=== PATIENT | female | born 1950 | race Caucasian/White ===

== ENCOUNTER → 2018-03-30 14:39 | Outpatient (CLI) | payer MEDICARE, SELFPAY ==
--- NOTE | 2018-03-30 14:49 | DI.RAD.S_ITS ---
PROCEDURE: XR CERVICAL SPINE 4V OR 5V INDICATIONS: Cervical spondylosis TECHNIQUE: 5 views of the cervical spine acquired. COMPARISON: None. FINDINGS: Bones: There is straightening and mild reversal of normal cervical lordosis. No acute compression fracture or traumatic spondylolisthesis to T3-4 level. Degenerative endplate changes are noted at C4-5, C5-6 and C6-7 levels. There is suggestion of bilateral neural foramina narrowing at C5-6 level. Soft tissues: No prevertebral soft tissue swelling. IMPRESSION: Degenerative disc disease in mid to lower cervical spine with suggestion of bilateral neural foramina narrowing at C5-6 level. No acute compression fracture or traumatic spondylolisthesis. Dictated by: Raul Garcia M.D. on 03/30/2018 at 15:53 Approved by: Ralu Garcia M.D. on 03/30/2018 at 15:55
--- NOTE | 2018-03-30 14:49 | DI.RAD.S_ITS ---
PROCEDURE: XR LUMBAR SPINE MIN 4V INDICATIONS: Lumbosacral spondylosis TECHNIQUE: 3 views of the lumbar spine acquired. COMPARISON: None. FINDINGS: Bones: 5 nonrib-bearing vertebrae are present. There is normal bony alignment. No vertebral body compression fractures. No suspicious bony lesions. Degenerative endplate changes are noted throughout lumbar spine. Soft tissues: Overlying bowel gas pattern is normal. No suspicious soft tissue calcifications. IMPRESSION: Mild degenerative disc disease through all visualized lower thoracic spine and lumbar spine. No acute compression fracture or traumatic spondylolisthesis. Dictated by: Raul Garcia M.D. on 03/30/2018 at 15:55 Approved by: Raul Garcia M.D. on 03/30/2018 at 15:56
== END ==
PROVIDERS: PCP Specialist; Visit Provider Physical Medicine & Rehabilitation
DX: M47.812 Spondylosis without myelopathy or radiculopathy, cervical region (principal); M50.321 Other cervical disc degeneration at C4-C5 level; M47.27 Other spondylosis with radiculopathy, lumbosacral region; M47.26 Other spondylosis with radiculopathy, lumbar region; M51.14 Intervertebral disc disorders with radiculopathy, thoracic region; R42 Dizziness and giddiness
CPT/HCPCS: 72050; 72110; 99214

== ENCOUNTER 2018-06-28 13:06 | Outpatient (CLI) | payer MEDICARE, SELFPAY ==
[2018-06-28] VITALS (7 sets, daily range): BP systolic 132–188; BP diastolic 76–99; PULSE 62–69; RESP 15–21; TEMP 36.1; O2SAT 98–100
--- NOTE | 2018-06-28 13:08 | DI.RAD.S_ITS ---
PROCEDURE: PAIN L/S TRANSFORAMINAL INJECT INDICATIONS: SPONDYLOSIS FINDINGS: Fluoroscopic spot filming was performed to verify placement of spinal needles at the L4-L5 level(s), as labeled on the films. Appropriate location(s) of the needle tip(s) was confirmed by injection of iodinated contrast. Dictated by: Anders Eden M.D. on 06/28/2018 at 20:47 Approved by: Anders Eden M.D. on 06/28/2018 at 20:48
[2018-06-28] MEDS: MIDAZOLAM 5 MG/5 ML VIAL IV (13:50)
[2018-06-28] MEDS: DEXAMETHASONE 10 MG/ML VIAL 20 MG INJ (13:57)
[2018-06-28] MEDS: BUPIVACAINE 0.25% (PF) VIAL 2 ML INJ (13:57)
[2018-06-28] MEDS: IOPAMIDOL 15 ML VIAL 3 ML INJ (13:57)
[2018-06-28] MEDS: methylPREDNISolone acetate 80 MG/ML VIAL INJ (13:59)
--- NOTE | 2018-06-28 14:13 | P.PCN_ITS ---
Procedures Date/Time Date of procedure: 06/28/18 Time of procedure: 14:12 General Procedure description: PREOP DIAGNOSIS 1. FORMAINAL STENOSIS WITH LE SYMPTOMS POST OP DIAGNOSIS 1. FORMAINAL STENOSIS WITH LE SYMPTOMS PROCEDURES 1. FLUOROSCOPICALLY GUIDED CONTRAST CONTROLLED TRANSFORAMINAL EPIDURAL STEROID INJECTION - LEFT L4/5 PHYSICIAN: Jeremias Aleman DO INDICATIONS: Mirela is referred by Dr. Guzman for treatment of Foraminal Stenosis with Left LE Symptoms FINDINGS Foraminal Nerve Root Compression secondary to disc disease and facet hypertrophy DESCRIPTION OF PROCEDURE: Following denial of allergy and review of potential side effects and complications, including, but not necessarily limited to, infection, allergic reaction, local tissue breakdown, stroke, temporary or permanent nerve injury, paralysis, and possible , the patient indicated that the patient understood and agreed to proceed. An informed consent document was signed by the patient, witnessed by a nurse, and placed in the patient's chart. Additionally, other treatment options including medications, modalities, and physical therapy were reviewed with the patient. After review of previous anaesthesic history and IV conscious sedation the patient was deemed safe to proceed with todays procedure with IV conscious sedation as ASA class II designation. Safety time-out was performed to confirm patient ID, procedure to be performed and site of procedure. IV sedation was accomplished with a combination of 4mg of Versed administered by the RN after DO order, titrated to patient comfort during the course of the procedure while the patient remained responsive to all verbal commands In the prone position following sterile prep and drape of the lumbar region, the left L4/5 posterior neuroforamen was identified fluoroscopically. The skin was anesthetized via a 25-gauge 1.5-inch needle with 1% lidocaine solution. At this point, a 25-gauge 3.5-inch spinal needle was atraumatically introduced and advanced under fluoroscopic guidance through the posterior left L4/5 neuroforamen to approximately the anterior aspect of the canal. Depth was confirmed on lateral view. Following negative aspiration, injection of approximately 1.5 cc of Isovue 200 under live fluoroscopy in the AP view confirmed excellent flow along the nerve root, into the epidural space without vascular or intrathecal uptake observed Radiological data, including multiple fluoroscopic views of the lumbosacral spine, reveal a spinal needle at the left L4/5 posterior neuroforamen. Subsequent views show flow of contrast material flowing superiorly and inferiorly along the nerve root confirming epidural flow. Subsequently, a test dose of 1.5 cc of 1% lidocaine solution was administered and patient was observed for two minutes for signs or symptoms of complications , including abdominal pain, shortness of breath, bilateral upper or lower extremity weakness, nausea and vomiting, prior to steroid injection. At this point, a total of 3 cc or 20 mg of dexamethasone and 80mg Depo Medrol was injected without incident. The procedure tolerated the procedure well without signs or symptoms of complications prior to transfer to the recovery area continued monitoring without incident. The patient was then transferred to the recovery area where they were observed for an appropriate time after the injection. The patient reported a VAS score of 7 prior to the procedure and a post- procedure VAS of 0. Total Fluoroscopy Time: 20.9 seconds Total Conscious Sedation Time: 24min POST OP INSTRUCTIONS The patient was provided a Pain Log to continue to record their response to the target-specific procedure prior to follow-up visit with their referring physician. Additionally, specific post-injection care instructions and a contact number to our office were provided if concerns arise regarding possible complications associated with the procedure are suspected. Jeremias Aleman DO Complications: none
--- NOTE | 2018-06-28 14:14 | PC.NURSE ---
pt tolerated procedure well. able to get off the table with minimal assist. Transferred pt to pre procedure room via Wheelchair for continued monitoring with Kyra GOMEZ.
--- NOTE | 2018-06-28 14:18 | PC.NURSE ---
ACCEPTED CARE OF PT IN STABLE CONDITION IN POST PROC AREA.
--- NOTE | 2018-06-29 17:09 | PC.NURSE ---
Follow up call one day post injection. Pt reports she didn't sleep good last night but she knew that was a possibility related to the steroids. Otherwise she reports doing quite well and happy with her results so far.
== END 2018-06-28 14:51 | disposition home or self-care (01) ==
LOC: RAD 13:07
PROVIDERS: PCP Specialist; Visit Provider Physical Medicine & Rehabilitation
DX: M48.061 Spinal stenosis, lumbar region without neurogenic claudication (principal); M51.16 Intervertebral disc disorders with radiculopathy, lumbar region; M47.27 Other spondylosis with radiculopathy, lumbosacral region
CPT/HCPCS: 64483; 99152; J1040; J1100; J2250

== ENCOUNTER 2018-09-13 13:08 | Outpatient (CLI) | payer MEDICARE, SELFPAY ==
[2018-09-13] VITALS (9 sets, daily range): BP systolic 129–183; BP diastolic 79–102; PULSE 61–68; RESP 16–18; TEMP 36.3; O2SAT 97–100
--- NOTE | 2018-09-13 13:10 | DI.RAD.S_ITS ---
PROCEDURE: PAIN L/SI FACET INJ/BLK 1STL INDICATIONS: SPONDYLOSIS FINDINGS: Fluoroscopic spot filming was performed to verify placement of spinal needles at the L4-L5 and L5-S1 level(s), as labeled on the films. Appropriate location(s) of the needle tip(s) was confirmed by injection of iodinated contrast. IMPRESSION: Fluoroscopy for pain management Dictated by: Jerrell Patle M.D. on 09/14/2018 at 7:46 Approved by: Jerrell Patel M.D. on 09/14/2018 at 7:46
[2018-09-13] MEDS: MIDAZOLAM 5 MG/5 ML VIAL IV (13:55)
[2018-09-13] MEDS: BUPIVACAINE 0.5% (PF) VIAL 2 ML INJ (13:59)
[2018-09-13] MEDS: IOPAMIDOL 15 ML VIAL 3 ML INJ (13:59)
[2018-09-13] MEDS: BETAMETHASONE 30 MG/5 ML MDV 12 MG INJ (13:59)
--- NOTE | 2018-09-13 14:01 | PC.NURSE ---
ASSISTING PT OFF TABLE AND TRANSPORTING TO POST PROC AREA IN STABLE CONDITION
--- NOTE | 2018-09-13 14:06 | P.PCN_ITS ---
Procedures Date/Time Date of procedure: 09/13/18 Time of procedure: 14:05 General Procedure description: PREOP DIAGNOSIS 1. FACET ARTHROPATHY, 2. AXIAL LBP, 3. MULTILEVEL DDD, POST OP DIAGNOSIS 1. FACET ARTHROPATHY, 2. AXIAL LBP, 3. MULTILEVEL DDD, PROCEDURES 1. FLUORSCOPICALLY GUIDED CONTRAST CONTROLLED FACET JOINT INJECTIONS LEFT L4/5, L5/S1 SURGEON: Jeremias Aleman, DO INDICATIONS Mirela is referred by Dr. Guzman for treatment of Left Axial LBP FINDINGS Multilevel Facet Arthropathy with Clinically significant axial LBP DESCRIPTION OF PROCEDURE Fluoroscopically guided, contrast-controlled left L4/5, L5/S1 facet joint injections. Following denial of allergy and review of potential side effects and complications, including, but not necessarily limited to, infection, allergic reaction, local tissue breakdown, stroke, temporary or permanent nerve injury, paralysis, and possible , the patient indicated that the patient understood and agreed to proceed. An informed consent document was signed by the patient, witnessed by a nurse, and placed in the patient's chart. Additionally, other treatment options including medications, modalities, and physical therapy were reviewed with the patient. After review of previous anaesthesic history and IV conscious sedation the patient was deemed safe to proceed with todays procedure with IV conscious sedation as ASA class II designation. Safety time-out was performed to confirm patient ID, procedure to be performed and site of procedure. IV sedation was accomplished with a combination of 4mg of Versed was administered by the RN after DO order, titrated to patient comfort during the course of the procedure while the patient remained responsive to all verbal commands. In the prone position, following sterile prep and drape of the lumbar region, the posterior aspect of the left L4/5, L5/S1 facet joints were identified fluoroscopically. The skin was anesthetized via a 25-gauge 1.5-inch needle with 1% lidocaine solution into the corresponding facet joints. At this point, a 22- gauge 3.5-inch spinal needle was atraumatically introduced and advanced under fluoroscopic guidance into the corresponding facet joints. Following negative aspiration, injections of approximately 0.2-cc of Isovue 200 confirmed interarticular placement without vascular uptake. Radiological data, including multiple fluoroscopic views of the lumbosacral spine, reveal a spinal needle at the left L4/5, L5/S1 facet joints. Subsequent views show flow of contrast material both superiorly and inferiorly within the joint space without vascular or intrathecal uptake. At this point, a total of 0.5 cc including a mixture of 0.25cc Marcaine and 0.25cc betamethasone was injected without complication into each of the corresponding facet joints. The procedure tolerated the procedure well without signs or symptoms of complications prior to transfer to the recovery area continued monitoring without incident. The patient was then transferred to the recovery area where they were observed for an appropriate period of time after the injection. The patient reported a VAS score of 7 prior to the procedure and a post-procedure VAS of 0. Total Fluoroscopy Time: 12.7 seconds Total Conscious Sedation Time: 24min POST OP INSTRUCTIONS The patient was provided a Pain Log to continue to record their response to the target-specific procedure prior to follow-up visit with their referring physician. Additionally, specific post-injection care instructions and a contact number to our office were provided if concerns arise regarding possible complications associated with the procedure are suspected. Jeremias Aleman, Complications: none
--- NOTE | 2018-09-13 14:38 | PC.NURSE ---
pt returned from procedure via wheelchair, awake and alert. Able to move from w/c to chair with stand by assist. Resumed monitoring from Kyra GOMEZ.
--- NOTE | 2018-09-14 12:27 | PC.NURSE ---
FOLLOW UP CALL MADE, PT C/O INCREASED PAIN TODAY. EXPLAINED THAT INCREASED PAIN IS COMMON DAY AFTER PROC AND INSTRUCTED PT TO TAKE ANY PRESCRIBED OR OTC MEDS DIRECTED. PT DENIES OTHER QUESTIONS/CONCERNS AT THIS TIME. REMINDED PT OF CLINIC NUMBER ON PAIN LOG IF SHE NEEDS US AT A LATER TIME/DATE.
== END 2018-09-13 14:35 | disposition short-term general hospital (02) ==
LOC: RAD 13:09
PROVIDERS: PCP Specialist; Visit Provider Physical Medicine & Rehabilitation
DX: M47.817 Spondylosis without myelopathy or radiculopathy, lumbosacral region (principal); M47.816 Spondylosis without myelopathy or radiculopathy, lumbar region; M54.5 Low back pain; M51.36 Other intervertebral disc degeneration, lumbar region
CPT/HCPCS: 64493; 64494; 99152; J0702; J2250

== ENCOUNTER 2018-12-27 10:26 | Outpatient (CLI) | payer MEDICARE, SELFPAY ==
[2018-12-27] VITALS (9 sets, daily range): BP systolic 119–172; BP diastolic 76–87; PULSE 61–73; RESP 16–18; TEMP 36.2; O2SAT 96–100
--- NOTE | 2018-12-27 10:27 | DI.RAD.S_ITS ---
PROCEDURE: PAIN L/SI FACET INJ/BLK 1STL INDICATIONS: SPONDYLOSIS FINDINGS: Fluoroscopic spot filming was performed to verify placement of spinal needles at the level(s) as labeled on the films. Appropriate location(s) of the needle tip(s) was confirmed by injection of iodinated contrast. IMPRESSION: Fluoroscopy for pain management. Dictated by: Jerrell Patel M.D. on 12/27/2018 at 17:04 Approved by: Jerrell Patel M.D. on 12/27/2018 at 17:05
[2018-12-27] MEDS: MIDAZOLAM 5 MG/5 ML VIAL IV (11:27)
[2018-12-27] MEDS: fentaNYL 100 MCG/2 ML INJ 50 MCG IV (11:27)
[2018-12-27] MEDS: IOPAMIDOL 15 ML VIAL 3 ML INJ (11:35)
[2018-12-27] MEDS: BUPIVACAINE 0.5% (PF) VIAL 2 ML INJ (11:35)
[2018-12-27] MEDS: BETAMETHASONE 30 MG/5 ML MDV 12 MG INJ (11:36)
--- NOTE | 2018-12-27 11:37 | PC.NURSE ---
ASSISTING PT OFF TABLE AND TRANSPORTING TO POST PROC AREA IN STABLE CONDITION.
--- NOTE | 2018-12-27 11:42 | P.PCN_ITS ---
Procedures Date/Time Date of procedure: 12/27/18 Time of procedure: 11:41 General Procedure description: POST OP DIAGNOSIS 1. FACET ARTHROPATHY PROCEDURES 1. Left L4, L5 and S1 MB BLOCKS PHYSICIAN: DO RODRIGO Loving Mirela is referred by for treatment of Left Axial LBP. DESCRIPTION OF PROCEDURE Fluoroscopically guided, contrast-controlled left L4, L5 and S1 medial branch blocks with 0.5cc of 0.5% Marcaine. Following review of allergy and review of potential side effects and complications, including, but not necessarily limited to, infection, allergic reaction, local tissue breakdown, nerve injury, paralysis, stroke and possible , the patient indicated that the patient understood and agreed to proceed. An informed consent document was signed by the patient, witnessed by a nurse, and placed in the patient's chart. After review of previous anaesthesic history and IV conscious sedation the patient was deemed safe to proceed with todays procedure with IV conscious sedation as ASA class II designation. Safety time-out was performed to confirm patient ID, procedure to be performed and site of procedure. IV sedation was accomplished with a combination of 3mg of Versed and 50mcg of Fentanyl was administered by the RN after DO order, titrated to patient comfort during the course of the procedure while the patient remained responsive to all verbal commands. In the prone position, following sterile prep and drape of the lumbar region, the left L4, L5 and S1 anatomical location of the medial branch of the dorsal ramus was identified fluoroscopically. Subsequently an anesthetic skin wheal using 1% lidocaine solution was initiated at each of the anatomical spots. Subsequently then a 22-gauge 3.5-inch spinal needle was atraumatically introduced and advanced under fluoroscopic guidance at each of the corresponding sites at the left L4, L5 and S1 MB. After negative aspiration, 0.2 cc of Isovue 200 was injected, confirming placement without vascular or intrathecal uptake. Subsequently then 0.5 cc of 0.5% Marcaine solution was injected at each of the corresponding sites at the left L4, L5 and S1 medial branch locations. The patient tolerated the procedure well without signs or symptoms of complications. The patient tolerated the procedure well without signs or symptoms of complications prior to transfer to the recovery area continued monitoring without incident. Post-procedure, the patient was monitored initiating provocative activities to measure the amount of relief from block of the facetogenic pain. The patient reported a VAS of 7 prior to the procedure and a post-procedure VAS of 1. It has been a pleasure to assist in the diagnostic and therapeutic care of your patient. Total Fluoroscopy Time: 24.8 seconds Total Conscious Sedation Time: 24min POST OP INSTRUCTIONS The patient was provided with a Pain Log to complete over the next several hours and subsequent days prior to the patient's follow up with the ordering physician. If the patient has physicist light and optics relief to the solution applied, then they may be a candidate for medial branch rhizotomy. The patient is aware, was provided, once again, with a Pain Log and will follow up with the referring physician for review and clinical correlation Jeremias Aleman DO Complications: none
--- NOTE | 2018-12-27 11:43 | PC.NURSE ---
Pt returned via wheelchair awake and alert, able to get from w/c to chair with standby assist. Resumed monitoring from Kyra GOMEZ.
== END 2018-12-27 12:15 ==
LOC: RAD 10:27
PROVIDERS: PCP Emergency Medicine Emergency Medical Services; Visit Provider Physical Medicine & Rehabilitation
DX: M47.817 Spondylosis without myelopathy or radiculopathy, lumbosacral region (principal); M47.816 Spondylosis without myelopathy or radiculopathy, lumbar region
CPT/HCPCS: 64493; 64494; 99152; J0702; J2250; J3010

== ENCOUNTER 2019-03-28 11:17 | Outpatient (CLI) | payer MEDICARE, SELFPAY ==
[2019-03-28] VITALS (9 sets, daily range): BP systolic 121–156; BP diastolic 54–79; PULSE 59–66; RESP 16–18; TEMP 35.9; O2SAT 99–100
--- NOTE | 2019-03-28 11:19 | DI.RAD.S_ITS ---
PROCEDURE: PAIN L/S MED/LAT N RFA INDICATIONS: SPONDYLOSIS FINDINGS: Fluoroscopic spot filming was performed to verify placement of spinal needles at the L4, L5, S1 level(s), as labeled on the films. Appropriate location(s) of the needle tip(s) was confirmed by injection of iodinated contrast. Dictated by: Anders Eden M.D. on 03/28/2019 at 15:06 Approved by: Anders Eden M.D. on 03/28/2019 at 15:06
--- NOTE | 2019-03-28 11:51 | PC.NURSE ---
1135: Patient arrived to DI for scheduled procedure, ambulated with steady gait. Awake, alert, and pleasant. Pain 3/10 dull ache, to lower back. VSS and afebrile.
[2019-03-28] MEDS: MIDAZOLAM 5 MG/5 ML VIAL IV (12:19)
[2019-03-28] MEDS: fentaNYL 100 MCG/2 ML INJ 50 MCG IV (12:19)
[2019-03-28] MEDS: BETAMETHASONE 30 MG/5 ML MDV 12 MG INJ (12:31)
[2019-03-28] MEDS: LIDOCAINE 1% 20 ML 10 ML INJ (12:31)
[2019-03-28] MEDS: IOPAMIDOL 15 ML VIAL 3 ML INJ (12:31)
[2019-03-28] MEDS: BUPIVACAINE 0.5% (PF) VIAL 2 ML INJ (12:32)
--- NOTE | 2019-03-28 12:39 | PC.NURSE ---
ASSISTING PT OFF TABLE AND TRANSPORTING TO POST PROC AREA IN STABLE CONDITION.
--- NOTE | 2019-03-28 12:54 | P.PCN_ITS ---
Procedures Date/Time Date of procedure: 03/28/19 Time of procedure: 12:54 General Procedure description: PREOP DIAGNOSIS 1. RECALCITRANT FACET ARTHROPATHY, POST OP DIAGNOSIS 1. RECALCITRANT FACET ARTHROPATHY, PROCEDURES 1. LEFTT L4 AND L5 MEDIAL BRANCH RADIOFREQUENCY NEUROTOMY AND LEFT S1 DORSAL RAMUS RADIOFREQUENCY NEUROTOMY, PHYSICIAN: DO RODRIGO Loving Mirela is referred by Dr. Guzman for treatment of facet arthropathy. DESCRIPTION OF PROCEDURE Left L4 and L5 medial branch radiofrequency neurotomy and left S1 dorsal ramus branch radiofrequency neurotomy under fluoroscopy with conscious sedation. The patient is well known to this clinic having undergone previous facet injections with good but temporary relief. The patient has experienced appropriate, concordant relief with previous facet and median branch blocks but the patient's pain has been recalcitrant to further conservative measures. Therefore, based upon the patient's relief and persistent symptoms, the patient is considered an appropriate candidate for facet rhizotomy. All of the patient's questions regarding the risks versus benefits of the procedure, including, but not limited to, bleeding, infection, temporary as well as lasting nerve injury, paralysis, stroke, and , as well treatment alternatives were answered to satisfaction. After obtaining informed consent, denial of pertinent drug allergies, as well as being made aware of the potential risks of bleeding, infection, spinal cord trauma, paralysis, temporary and permanent nerve damage, seizure, stroke, and possible , the patient was brought to the fluoroscopy suite and positioned prone on the fluoroscopy table. The lumbar region was prepped with Betadine and covered with a fenestrated drape in the usual sterile fashion. Appropriate monitors applied including pulse oximeter, pulse, and blood pressure for regular monitoring throughout the procedure. IV sedation was accomplished with a combination of 3mg of Versed and 50mcg of Fentanyl titrated to patient comfort during the course of the procedure while the patient remained responsive to all verbal commands. After local infiltration using 1% lidocaine, under fluoroscopic guidance, a 10- cm RF insulated needle with a 10-mm active tip was positioned parallel to the junction of the left sacral ala and the superior articulating process where the S1 dorsal ramus resides. Needle placement was confirmed with sensory stimulation at 50 Hz, with motor stimulation of .5v on the left which produced local stimulation without radicular component. The stimulation was then increased to 1.5v with, once again, only local multifidus stimulation without radicular component. This was then followed by two discreet lesions performed at 80 degrees Celsius for 90 seconds each. The needle was then removed and the identical procedure was performed along the length of the left L5 medial branch with motor stimulation at .7v on the leftt. The identical procedure was once again performed along the length of the left L4 medial branch with motor stimulation of .5v on the left. The patient tolerated the procedure well without signs or symptoms of complications prior to transfer to the recovery area continued monitoring without incident. The patient was then transferred to the recovery area where they were observed for an appropriate period of time after the injection. The patient was then transferred to the recovery area where they were observed for an appropriate period of time after the injection. The patient reported a VAS score of 9 prior to the procedure and a post- procedure VAS of 0. Total Fluoroscopy Time: 22.7 seconds Total Conscious Sedation Time: 34min POST OP INSTRUCTIONS The patient was provided a Pain Log to continue to record the patient's response to the target-specific procedure prior to the patient's follow-up visit with the referring physician. Additionally, specific post-injection care instructions and a contact number to our office were provided if concerns arise regarding possible complications associated with the procedure are suspected. Jeremias Aleman, Complications: none
== END 2019-03-28 13:08 | disposition home or self-care (01) ==
LOC: RAD 11:19
PROVIDERS: PCP Emergency Medicine Emergency Medical Services; Visit Provider Physical Medicine & Rehabilitation
DX: M47.816 Spondylosis without myelopathy or radiculopathy, lumbar region (principal); M47.817 Spondylosis without myelopathy or radiculopathy, lumbosacral region
CPT/HCPCS: 64635; 64636; 99152; J0702; J2250; J3010

== ENCOUNTER 2019-07-04 12:28 | Outpatient (CLI) | payer MEDICARE, SELFPAY ==
[2019-07-04] VITALS (8 sets, daily range): BP systolic 120–185; BP diastolic 71–93; PULSE 56–64; RESP 16–18; O2SAT 98–100
--- NOTE | 2019-07-04 12:29 | DI.RAD.S_ITS ---
PROCEDURE: PAIN SI JOINT INJECTION INDICATIONS: RADICULOPATHY FINDINGS: Fluoroscopic spot filming was performed to verify placement of spinal needles at the left SI joint level(s), as labeled on the films. Appropriate location(s) of the needle tip(s) was confirmed by injection of iodinated contrast. IMPRESSION: Fluoroscopy for pain management. Dictated by: Jerrell Patel M.D. on 07/04/2019 at 15:13 Approved by: Jerrell Patel M.D. on 07/04/2019 at 15:14
[2019-07-04] MEDS: fentaNYL 100 MCG/2 ML INJ 50 MCG IV (13:51)
[2019-07-04] MEDS: MIDAZOLAM 5 MG/5 ML VIAL IV (13:51)
[2019-07-04] MEDS: BUPIVACAINE 0.5% (PF) VIAL 2 ML INJ (13:55)
[2019-07-04] MEDS: IOPAMIDOL 15 ML VIAL 3 ML INJ (13:55)
[2019-07-04] MEDS: BETAMETHASONE 30 MG/5 ML MDV 12 MG INJ (13:55)
--- NOTE | 2019-07-04 13:57 | PC.NURSE ---
ASSISTING PT OFF TABLE AND TRANSPORTING TO POST PROC AREA IN STABLE CONDITION. PASSING RN CARE OF PT OFF TO JOHN Esquivel RN.
--- NOTE | 2019-07-04 14:05 | PM.PROC.1 ---
Procedures Date/Time Date of procedure: 07/04/19 Time of procedure: 14:06 General Procedure description: PREOP Dx: Sacroiliac joint pain/DJD POST OP DX: Sacroiliac Joint Pain/DJD Procedures: Fluoroscopic guided contrast controlled left sacroiliac joint injection Physician: Jeremias Aleman D.O. Indications: Mirela is referred by Dr. Guzman for treatment of left sacroiliac joint DJD Description of procedure Fluoroscopic guided, contrast controlled left sacroiliac joint injection Following review of allergies and review of potential side effects and complications, including, but not necessarily limited to, infection, allergic reaction, local tissue breakdown, temporary as well as permanent nerve injury, paralysis, stroke and possible , the patient indicated that they understood and agreed to proceed. An informed consent was signed by the patient, witnessed by a nurse, and placed in the patient's chart. Additionally, other treatment options including modalities, medications, and physical therapy were reviewed with the patient. After review of previous anaesthesic history and IV conscious sedation the patient was deemed safe to proceed with todays procedure with IV conscious sedation as ASA class II designation. Safety time-out was performed to confirm patient ID, procedure to be performed and site of procedure. IV sedation was accomplished with a combination of 2mg of Versed and 50mcg of Fentanyl administered by the RN after DO order, titrated to patient comfort during the course of the procedure while the patient remained responsive to all verbal commands. In the prone position following sterile prep and drape of the pelvic region, the hyper lucency on in the inferior aspect of the left sacroiliac joint was identified fluoroscopically the skin was anesthetized be a 25 gauge 1 eventual with approximately 2 cc of 1% lidocaine solution. At this point, a 22 gauge 3 in spinal needle was atraumatically introduced and advanced under fluoroscopic guidance into the inferior aspect of the left sacroiliac joint. Following negative aspiration, approximately 0.3 cc of Isovue-300 was injected confirming intra-articular placement without vascular uptake. Radiographic data, including multiple fluoroscopic views of the pelvis, reveals a spinal needle in the left sacroiliac joint hyper lucent zone. Subsequent view show flow contrast tear superiorly and inferiorly within the joint capsule without vascular intrathecal uptake. At this point a total of 1cc or 0.5% Marcaine was combined with 1cc of 6mg of betamethasone was injected without incident. The patient tolerated the procedure well without signs or symptoms of complications prior to transfer to the recovery area for further monitoring. The patient was then transferred to the recovery area with a bur observed for an appropriate time after the injection. The patient reverted a vas score of 7 prior to the procedure and postprocedure vas of 1. Total fluoroscopy time: 22.7 sec Total conscious sedation time: 24 min Postop instructions The patient was provided with a pain like to continue to record the patient's response to the target specific procedure prior to the patient's follow-up visit with the referring physician. Additionally, specific post injection care instructions and a contact number to our office were provided if concerns arise regarding the possible complications associated with procedure are suspected. Jeremias Aleman D.O. Complications: none
--- NOTE | 2019-07-04 17:18 | PC.NURSE ---
VERSED AND FENTANYL PREPARED AND ADMINISTERED BY THIS RN. ALL OTHER MEDS PREPARED AND ADMINISTERED BY DR. NARAYANAN.
== END 2019-07-04 14:45 | disposition home or self-care (01) ==
LOC: RAD 12:28
PROVIDERS: PCP Emergency Medicine Emergency Medical Services; Visit Provider Physical Medicine & Rehabilitation
DX: M53.3 Sacrococcygeal disorders, not elsewhere classified (principal); M47.898 Other spondylosis, sacral and sacrococcygeal region
CPT/HCPCS: 27096; 99152; J0702; J2250; J3010

== ENCOUNTER → 2021-06-27 12:41 | Outpatient (CLI) | payer MEDICARE, SELFPAY ==
--- NOTE | 2021-06-27 12:44 | DI.MRI.S_ITS ---
PROCEDURE: MR LUMBAR SPINE WO CON INDICATIONS: Radiculopathy, lumbosacral region TECHNIQUE: Noncontrast sagittal T1 spin echo and T2 fast echo, sagittal STIR, axial T1 and T2 fast spin echo through the lumbar spine. In cases with scoliosis, additional coronal T2 fast spin echo may be performed. COMPARISON: None. FINDINGS: Image quality: Excellent. Alignment and Curvature: Mild levoconvex scoliotic curvature is noted. Bone Marrow: Marrow is of normal overall signal. Scattered foci are seen, which are hyperintense on T1-weighted and T2-weighted imaging, which are most consistent with benign vertebral body hemangiomas. No acute vertebral body compression fractures. Spinal Cord: Conus medullaris terminates at the L1 level. Visualized cord demonstrates normal signal and size. Paraspinous Soft Tissues: No paravertebral masses. T12-L1: Normal appearance. L1-L2: Mild loss of disc height is seen. Loss of disc signal is seen. Moderate generalized disc bulge is seen. Bridging endplate osteophytes are seen. Moderate bilateral neural foraminal narrowing is seen. Mild central canal narrowing is seen. L2-L3: The disc height is well-preserved. Loss of disc signal is seen at this level. Bridging endplate osteophytes are seen. Moderate generalized disc bulge is seen. There is moderate left-sided and srvw-md-xphurqth right-sided neural foraminal narrowing seen. Mild central L3-L4: Mild loss of disc height is seen. Loss of disc signal is seen. Moderate generalized disc bulge is seen. There is a superimposed central disc protrusion. Mild to moderate facet hypertrophy is seen. There is at least moderate right-sided and altx-vt-ttjxqvzm left-sided neural foraminal narrowing seen. Moderate central canal narrowing is seen. L4-L5: Cith-xg-pkjzaiaf loss of disc height and disc signal can be seen. At least moderate disc bulge is seen, which is slightly eccentric to the left. There is a superimposed central disc protrusion. At least moderate facet joint hypertrophy is seen. There is moderate right-sided and at least moderate left-sided neural foraminal narrowing seen. There is a minimal degree of compression seen upon the exiting left L4 nerve root. L5-S1: Mild loss of disc height is seen. Loss of disc signal is seen. Mild to moderate disc bulge is seen. There is moderate to prominent right-sided and moderate left-sided facet hypertrophy seen. There is moderate left-sided and ozon-dx-nciamdns right-sided neural foraminal narrowing seen. Mild to moderate central canal narrowing is seen. IMPRESSION: Multiple levels of lumbar spine degenerative change are seen, which are overall worst at the L4-L5 level. Dictated by: Estuardo Martinez M.D. on 06/27/2021 at 12:44 Approved by: Estuardo Martinez M.D. on 06/27/2021 at 12:47
== END ==
PROVIDERS: PCP Emergency Medicine Emergency Medical Services; Referring Provider Physical Medicine & Rehabilitation; Visit Provider Physical Medicine & Rehabilitation
DX: M47.26 Other spondylosis with radiculopathy, lumbar region (principal)
CPT/HCPCS: 72148

== ENCOUNTER 2021-08-21 11:24 | Outpatient (CLI) | payer MEDICARE, SELFPAY | END 2021-08-26 09:15 | disposition home or self-care (01) | LOC: PHYS 11:25 | PROVIDERS: PCP Emergency Medicine Emergency Medical Services; Referring Provider Physical Medicine & Rehabilitation; Visit Provider Physical Medicine & Rehabilitation | DX: R20.2 Paresthesia of skin (principal) | CPT/HCPCS: 95886; 95910 ==

== ENCOUNTER → 2021-08-22 11:02 | Outpatient (CLI) | payer MEDICARE, SELFPAY ==
--- NOTE | 2021-08-22 11:03 | DI.MRI.S_ITS ---
PROCEDURE: MR CERVICAL SPINE WO CON INDICATIONS: Right upper extremity paresthesias TECHNIQUE: Noncontrast sagittal T1 spin echo and T2 fast spin echo, sagittal STIR, foraminal oblique sagittal T2 fast spin echo, and axial gradient echo or T2 fast spin echo through the cervical spine. COMPARISON: [facility], RG, MRI C-SPINE W/O CONTRAST, 04/11/2014, 8:30. FINDINGS: Image quality: Excellent. Alignment and Curvature: There is trace anterolisthesis of C4 on C5, trace retrolisthesis of C5 on C6, C6 on C7. Bone Marrow: Marrow demonstrates normal overall signal. Minimal reactive endplate changes are present at C5-6. Spinal Cord: Visualized spinal cord has normal size and signal. No cerebellar tonsillar herniation. Paraspinous Soft Tissues: No paravertebral masses. Prevertebral soft tissues are normal in thickness. Discs: Multilevel moderate to severe disc desiccation is present. C2-C3: Minimal disc bulge with severe left and ueqn-rn-bemmsxrq right foraminal narrowing with uncovertebral hypertrophy. Minimal interval progression of disc bulge compared to prior exam. C3-C4: Minimal disc bulge without spinal stenosis. Manl-kn-ekdvsebi bilateral foraminal narrowing with uncovertebral hypertrophy, slightly progressive. C4-C5: Minimal disc bulge with slight effacement of the anterior thecal sac. Mild to moderate left and minimal right foraminal narrowing with uncovertebral hypertrophy, slightly progressive. C5-C6: Mild disc bulge with mild spinal stenosis, progressive. There is moderate to severe bilateral foraminal narrowing, left greater than right with uncovertebral hypertrophy, demonstrating bilateral interval progression C6-C7: Mild disc bulge with mild spinal stenosis. Moderate to severe bilateral foraminal narrowing with uncovertebral hypertrophy, slightly progressive. C7-T1: No disc bulge, spinal stenosis or foraminal narrowing. No interval change. IMPRESSION: Multilevel degenerative changes with areas of interval progression as above. Multilevel foraminal narrowing most notable at C5-6 and C6-7 secondary to uncovertebral arthropathy. Dictated by: Yolanda Tejeda M.D. on 08/28/2021 at 9:47 Approved by: Yolanda Tejeda M.D. on 08/28/2021 at 11:51
== END ==
PROVIDERS: PCP Emergency Medicine Emergency Medical Services; Referring Provider Physical Medicine & Rehabilitation; Visit Provider Physical Medicine & Rehabilitation
DX: M47.22 Other spondylosis with radiculopathy, cervical region (principal); M48.02 Spinal stenosis, cervical region
CPT/HCPCS: 72141

== ENCOUNTER → 2021-09-01 12:26 | Outpatient (CLI) | payer MEDICARE, SELFPAY ==
[2021-09-01 14:11] LABS: COVID19 -Nasal RAPID Negative (Negative)
== END ==
PROVIDERS: PCP Emergency Medicine Emergency Medical Services; Visit Provider Physical Medicine & Rehabilitation
DX: Z20.822 Contact with and (suspected) exposure to COVID-19 (principal)
CPT/HCPCS: 87635; C9803

== ENCOUNTER 2021-09-02 14:14 | Outpatient (CLI) | payer MEDICARE, SELFPAY ==
[2021-09-02] VITALS (9 sets, daily range): BP systolic 138–193; BP diastolic 68–88; PULSE 58–68; RESP 13–20; O2SAT 95–100
--- NOTE | 2021-09-02 14:16 | DI.RAD.S_ITS ---
PROCEDURE: PAIN L/SI FACET INJ/BLK 1STL INDICATIONS: SPONDYLOSIS COMPARISON: [facility], , PAIN L/SI FACET INJ/BLK 1STL, 12/27/2018, 11:35. FINDINGS: Fluoroscopic spot filming was performed to verify placement of spinal needles on the left at the L4, L5, and S1 levels, as labeled on the films. Appropriate location of the needle tips was confirmed by injection of iodinated contrast. IMPRESSION: Intraprocedural examination within normal limits. Dictated by: Estuardo Martinez M.D. on 09/02/2021 at 14:29 Approved by: Estuardo Martinez M.D. on 09/02/2021 at 14:29
[2021-09-02] MEDS: fentaNYL 100 MCG/2 ML INJ 50 MCG IV (14:38)
[2021-09-02] MEDS: MIDAZOLAM 5 MG/5 ML VIAL IV (14:38)
[2021-09-02] MEDS: BUPIVACAINE 0.5% (PF) VIAL 5 ML INJ (14:46)
[2021-09-02] MEDS: IOPAMIDOL 15 ML VIAL 3 ML INJ (14:46)
--- NOTE | 2021-09-02 14:54 | PM.PROC.IR.1 ---
Date/Time/Diagnoses Date of procedure: 09/02/21 Time of procedure: 14:54 Pre-procedure diagnosis: 1. FACET ARTHROPATHY This procedure is found to meet the Governor's proclamation 20-24.2 regarding non urgent procedures. This patient meets multiple criteria for the procedure including continuing or worsening of significant or severe pain, combined with further deterioration of the patient's condition or overall health as well as delay in treatment would be expected to result in less positive ultimate medical outcome. Therefore the decision to perform the procedure in an outpatient hospital setting is found to be in accordance with guidelines of the proclamation. Post-procedure diagnosis: same Procedure Notes Procedure: 1. Left L4, L5 and S1 MB BLOCKS Indications: Mirela is referred by Dr. Guzman for treatment of Left Axial LBP. Physician: Jeremias Aleman Total Fluoroscopy time (seconds): 7 Total sedation minutes: 10 Complications: none Procedure in detail & Post-procedure care: DESCRIPTION OF PROCEDURE Fluoroscopically guided, contrast-controlled left L4, L5 and S1 medial branch blocks with 0.5cc of 0.5% Marcaine. Following review of allergy and review of potential side effects and complications, including, but not necessarily limited to, infection, allergic reaction, local tissue breakdown, nerve injury, paralysis, stroke and possible , the patient indicated that the patient understood and agreed to proceed. An informed consent document was signed by the patient, witnessed by a nurse, and placed in the patient's chart. After review of previous anaesthesic history and IV conscious sedation the patient was deemed safe to proceed with today?s procedure with IV conscious sedation as ASA class II designation. Safety time-out was performed to confirm patient ID, procedure to be performed and site of procedure. IV sedation was accomplished with a combination of 2mg of Versed and 50mcg of Fentanyl was administered by the RN after DO order, titrated to patient comfort during the course of the procedure while the patient remained responsive to all verbal commands. In the prone position, following sterile prep and drape of the lumbar region, the left L4, L5 and S1 anatomical location of the medial branch of the dorsal ramus was identified fluoroscopically. Subsequently an anesthetic skin wheal using 1% lidocaine solution was initiated at each of the anatomical spots. Subsequently then a 22-gauge 3.5-inch spinal needle was atraumatically introduced and advanced under fluoroscopic guidance at each of the corresponding sites at the left L4, L5 and S1 MB. After negative aspiration, 0.2cc of Isovue 200 was injected, confirming placement without vascular or intrathecal uptake. Subsequently then 0.5cc of 0.5% Marcaine solution was injected at each of the corresponding sites at the left L4, L5 and S1 medial branch locations. The patient tolerated the procedure well without signs or symptoms of complications. The patient tolerated the procedure well without signs or symptoms of complications prior to transfer to the recovery area continued monitoring without incident. Post-procedure, the patient was monitored initiating provocative activities to measure the amount of relief from block of the facetogenic pain. The patient reported a VAS of 7 prior to the procedure and a post-procedure VAS of 1. It has been a pleasure to assist in the diagnostic and therapeutic care of your patient. POST OP INSTRUCTIONS The patient was provided with a Pain Log to complete over the next several hours and subsequent days prior to the patient's follow up with the ordering physician. 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 The patient is aware, was provided, once again, with a Pain Log and will follow up with the referring physician for review and clinical correlation.
== END 2021-09-02 15:10 | disposition home or self-care (01) ==
LOC: RAD 14:16
PROVIDERS: PCP Emergency Medicine Emergency Medical Services; Referring Provider Physical Medicine & Rehabilitation; Visit Provider Physical Medicine & Rehabilitation
DX: M47.817 Spondylosis without myelopathy or radiculopathy, lumbosacral region (principal); M47.816 Spondylosis without myelopathy or radiculopathy, lumbar region
CPT/HCPCS: 64493; 64494; 99152; J2250; J3010

== ENCOUNTER → 2021-11-24 12:50 | Outpatient (CLI) | payer MEDICARE, SELFPAY ==
--- NOTE | 2021-11-24 12:51 | DI.RAD.S_ITS ---
PROCEDURE: XR LUMBAR SPINE MIN 4V INDICATIONS: BACK PAIN TECHNIQUE: 5 views of the lumbar spine were acquired, including bilateral oblique views. COMPARISON: [facility], MR, MR LUMBAR SPINE WO CON, 06/27/2021, 12:55. [facility], CR, XR LUMBAR SPINE MIN 4V, 03/30/2018, 14:29. FINDINGS: Bones: 5 nonrib-bearing vertebrae are present. Trace levoconvex curvature. No vertebral body compression fractures. No suspicious bony lesions. Multilevel disc space narrowing degenerative endplate changes are seen. Facet hypertrophy is seen from L2-3 through L5-S1. Soft tissues: Overlying bowel gas pattern is normal. No suspicious soft tissue calcifications. Aortic atherosclerotic calcifications. Oblique images: No pars defects. IMPRESSION: 1. No acute osseous abnormality. If the symptoms persist, consider cross sectional imaging such as MRI or CT for further assessment. 2. Multilevel spondylosis. Dictated by: Fausto Mora M.D. on 11/24/2021 at 15:08 Approved by: Fausto Mora M.D. on 11/24/2021 at 15:10
== END ==
PROVIDERS: PCP Emergency Medicine Emergency Medical Services; Referring Provider Physical Medicine & Rehabilitation; Visit Provider Physical Medicine & Rehabilitation
DX: M47.817 Spondylosis without myelopathy or radiculopathy, lumbosacral region (principal); M47.816 Spondylosis without myelopathy or radiculopathy, lumbar region; M48.061 Spinal stenosis, lumbar region without neurogenic claudication; M47.22 Other spondylosis with radiculopathy, cervical region; M67.951 Unspecified disorder of synovium and tendon, right thigh; M53.3 Sacrococcygeal disorders, not elsewhere classified; R42 Dizziness and giddiness
CPT/HCPCS: 72110; 99214

== ENCOUNTER 2022-07-09 10:39 | Outpatient (CLI) | payer MEDICARE, OTHER, SELFPAY ==
[2022-07-09] VITALS (9 sets, daily range): BP systolic 122–194; BP diastolic 64–89; PULSE 60–77; RESP 15–20; TEMP 36.7; O2SAT 97–99
--- NOTE | 2022-07-09 10:41 | DI.RAD.S_ITS ---
PROCEDURE: PAIN L/S MED/LAT N RFA INDICATIONS: SPONDYLOSIS COMPARISON: [facility], CR, XR LUMBAR SPINE MIN 4V, 11/24/2021, 12:53. FINDINGS: Fluoroscopic spot filming was performed to verify placement of spinal needles at the left L4, L5 and S1 level(s), as labeled on the films. Appropriate location(s) of the needle tip(s) was confirmed by injection of iodinated contrast. IMPRESSION: Fluoroscopy for pain management. Dictated by: Jerrell Patel M.D. on 07/09/2022 at 15:58 Approved by: Jerrell Patel M.D. on 07/09/2022 at 15:59
[2022-07-09] MEDS: MIDAZOLAM 2 MG/2 ML VIAL 4 MG IV (12:16)
[2022-07-09] MEDS: LIDOCAINE 1% 20 ML INJ (12:17)
[2022-07-09] MEDS: BUPIVACAINE 0.5% (PF) 10 ML VIAL INJ (12:19)
--- NOTE | 2022-07-09 12:52 | P.PCN_ITS ---
Date/Time/Diagnoses Date of procedure: 07/09/22 Time of procedure: 12:52 Pre-procedure diagnosis: 1. RECALCITRANT FACET ARTHROPATHY Post-procedure diagnosis: same Procedure Notes Procedure: 1. LEFT L4 AND L5 MEDIAL BRANCH RADIOFREQUENCY NEUROTOMY AND LEFT S1 DORSAL RAMUS RADIOFREQUENCY NEUROTOMY, Indications: Mirela is referred by Dr. Guzman for treatment of facet arthropathy. Physician: Jeremias Aleman Total Fluoroscopy time (seconds): 8 Total sedation minutes: 20 Complications: none Procedure in detail & Post-procedure care: DESCRIPTION OF PROCEDURE Left L4 and L5 medial branch radiofrequency neurotomy and left S1 dorsal ramus branch radiofrequency neurotomy under fluoroscopy with conscious sedation. The patient is well known to this clinic having undergone previous facet injections with good but temporary relief. The patient has experienced appropriate, concordant relief with previous facet and median branch blocks but the patient's pain has been recalcitrant to further conservative measures. Therefore, based upon the patient's relief and persistent symptoms, the patient is considered an appropriate candidate for facet rhizotomy. All of the patient's questions regarding the risks versus benefits of the procedure, including, but not limited to, bleeding, infection, temporary as well as lasting nerve injury, paralysis, stroke, and , as well treatment alternatives were answered to satisfaction. After obtaining informed consent, denial of pertinent drug allergies, as well as being made aware of the potential risks of bleeding, infection, spinal cord trauma, paralysis, temporary and permanent nerve damage, seizure, stroke, and possible , the patient was brought to the fluoroscopy suite and positioned prone on the fluoroscopy table. The lumbar region was prepped with Betadine and covered with a fenestrated drape in the usual sterile fashion. Appropriate monitors applied including pulse oximeter, pulse, and blood pressure for regular monitoring throughout the procedure. IV sedation was accomplished with a combination of 4mg of Versed and 50mcg of Fentanyl titrated to patient comfort during the course of the procedure while the patient remained responsive to all verbal commands. After local infiltration using 1% lidocaine, under fluoroscopic guidance, a 10- cm RF insulated needle with a 10-mm active tip was positioned parallel to the junction of the left sacral ala and the superior articulating process where the S1 dorsal ramus resides. Needle placement was confirmed with sensory stimulation at 50 Hz, with motor stimulation of .5v on the left which produced local stimulation without radicular component. The stimulation was then increased to 2v with, once again, only local multifidus stimulation without radicular component. This was then followed by two discreet lesions performed at 80 degrees Celsius for 90 seconds each. The needle was then removed and the identical procedure was performed along the length of the left L5 medial branch with motor stimulation at .7v on the left. The identical procedure was once again performed along the length of the left L4 medial branch with motor stimulation of .5v on the left. The patient tolerated the procedure well without signs or symptoms of complications prior to transfer to the recovery area continued monitoring without incident. The patient was then transferred to the recovery area where they were observed for an appropriate period of time after the injection. The patient was then transferred to the recovery area where they were observed for an appropriate period of time after the injection. The patient reported a VAS score of 9 prior to the procedure and a post- procedure VAS of 0. POST OP INSTRUCTIONS The patient was provided a Pain Log to continue to record the patient's response to the target-specific procedure prior to the patient's follow-up visit with the referring physician. Additionally, specific post-injection care instructions and a contact number to our office were provided if concerns arise regarding possible complications associated with the procedure are suspected.
== END 2022-07-09 12:58 | disposition home or self-care (01) ==
LOC: RAD 10:40
PROVIDERS: PCP Emergency Medicine Emergency Medical Services; Referring Provider Physical Medicine & Rehabilitation; Visit Provider Physical Medicine & Rehabilitation
DX: M47.817 Spondylosis without myelopathy or radiculopathy, lumbosacral region (principal); M47.816 Spondylosis without myelopathy or radiculopathy, lumbar region
CPT/HCPCS: 64635; 64636; 99152; J2250

== ENCOUNTER 2022-08-18 09:49 | Outpatient (CLI) | payer MEDICARE, OTHER, SELFPAY ==
[2022-08-18] VITALS (8 sets, daily range): BP systolic 111–158; BP diastolic 63–93; PULSE 60–66; RESP 11–18; TEMP 36.3; O2SAT 97–100
--- NOTE | 2022-08-18 09:51 | DI.RAD.S_ITS ---
PROCEDURE: PAIN SI JOINT INJECTION INDICATIONS: SACROILIAC DISORDER COMPARISON: [facility], XA, PAIN SI JOINT INJECTION, 07/04/2019, 13:51. FINDINGS: Fluoroscopic spot filming was performed to verify placement of spinal needles overlying the labeled left SI joint, as labeled on the films. Appropriate location(s) of the needle tip(s) was confirmed by injection of iodinated contrast. IMPRESSION: Needle placement for SI joint injection. Dictated by: Yolanda Tejeda M.D. on 08/18/2022 at 13:43 Approved by: Yolanda Tejeda M.D. on 08/18/2022 at 13:44
--- NOTE | 2022-08-18 10:05 | PM.PROC.IR.1 ---
Date/Time/Diagnoses Date of procedure: 08/18/22 Time of procedure: 10:53 Pre-procedure diagnosis: Sacroiliac Joint Pain/DJD Post-procedure diagnosis: same Procedure Notes Procedure: Fluoroscopically guided contrast controlled left sacroiliac joint injection Indications: Mirela is referred by Dr. Guzman for treatment of left sacroiliac joint DJD Physician: Jeremias Aleman Total Fluoroscopy time (seconds): 8 Total sedation minutes: 9 Complications: none Procedure in detail & Post-procedure care: DESCRIPTION OF PROCEDURE Fluoroscopic guided, contrast controlled left sacroiliac joint injection Following review of allergies and review of potential side effects and complications, including, but not necessarily limited to, infection, allergic reaction, local tissue breakdown, temporary as well as permanent nerve injury, paralysis, stroke and possible , the patient indicated that they understood and agreed to proceed. An informed consent was signed by the patient, witnessed by a nurse, and placed in the patient's chart. Additionally, other treatment options including modalities, medications, and physical therapy were reviewed with the patient. After review of previous anaesthesic history and IV conscious sedation the patient was deemed safe to proceed with today?s procedure with IV conscious sedation as ASA class II designation. Safety time-out was performed to confirm patient ID, procedure to be performed and site of procedure. IV sedation was accomplished with a combination of 2mg of Versed administered by the RN after DO order, titrated to patient comfort during the course of the procedure while the patient remained responsive to all verbal commands. In the prone position following sterile prep and drape of the pelvic region, the hyper lucency on in the inferior aspect of the left sacroiliac joint was identified fluoroscopically the skin was anesthetized be a 25 gauge 1 eventual with approximately 2cc of 1% lidocaine solution. At this point, a 22 gauge 3inch spinal needle was atraumatically introduced and advanced under fluoroscopic guidance into the inferior aspect of the left sacroiliac joint. Following negative aspiration, approximately 0.3cc of Isovue-300 was injected confirming intra-articular placement without vascular uptake. Radiographic data, including multiple fluoroscopic views of the pelvis, reveals a spinal needle in the left sacroiliac joint hyper lucent zone. Subsequent view show flow contrast tear superiorly and inferiorly within the joint capsule without vascular intrathecal uptake. At this point a total of 1cc or 0.5% Marcaine was combined with 1cc of 6mg of betamethasone was injected without incident. The patient tolerated the procedure well without signs or symptoms of complications prior to transfer to the recovery area for further monitoring. The patient was then transferred to the recovery area with a bur observed for an appropriate time after the injection. The patient reverted a vas score of 7 prior to the procedure and postprocedure vas of 1. POSTOP INSTRUCTIONS The patient was provided with a pain like to continue to record the patient's response to the target specific procedure prior to the patient's follow-up visit with the referring physician. Additionally, specific post injection care instructions and a contact number to our office were provided if concerns arise regarding the possible complications associated with procedure are suspected.
[2022-08-18] MEDS: MIDAZOLAM 2 MG/2 ML VIAL IV (10:40)
[2022-08-18] MEDS: IOPAMIDOL 15 ML VIAL 3 ML INJ (10:44)
[2022-08-18] MEDS: BETAMETHASONE 30 MG/5 ML MDV 12 MG INJ (10:45)
[2022-08-18] MEDS: BUPIVACAINE 0.5% MDV 5 ML SUBCUT (10:45)
== END 2022-08-18 11:14 | disposition home or self-care (01) ==
LOC: RAD 09:50
PROVIDERS: PCP Emergency Medicine Emergency Medical Services; Referring Provider Physical Medicine & Rehabilitation; Visit Provider Physical Medicine & Rehabilitation
DX: M53.3 Sacrococcygeal disorders, not elsewhere classified (principal); M46.1 Sacroiliitis, not elsewhere classified
CPT/HCPCS: 27096; J0702; J2250

== ENCOUNTER 2022-12-29 12:36 | Outpatient (CLI) | payer MEDICARE, OTHER, SELFPAY ==
[2022-12-29] VITALS (9 sets, daily range): BP systolic 130–194; BP diastolic 53–86; PULSE 58–66; RESP 14–20; TEMP 36.8; O2SAT 97–100
--- NOTE | 2022-12-29 12:37 | DI.RAD.S_ITS ---
PROCEDURE: PAIN L/S TRANSFORAMINAL INJECT INDICATIONS: SPONDYLOSIS COMPARISON: [facility], , PAIN L/S TRANSFORAMINAL INJECT, 06/28/2018, 15:02. FINDINGS: Fluoroscopic spot filming was performed to verify placement of a spinal needle at the L5-S1 level, as labeled on the films. Appropriate location of the needle tip was confirmed by injection of iodinated contrast. IMPRESSION: No significant intraprocedural abnormality. Dictated by: Estuardo Martinez M.D. on 12/29/2022 at 16:55 Approved by: Estuardo Martinez M.D. on 12/29/2022 at 16:55
--- NOTE | 2022-12-29 12:54 | P.PCN_ITS ---
Date/Time/Diagnoses Date of procedure: 12/29/22 Time of procedure: 13:45 Pre-procedure diagnosis: 1. FORAMINAL STENOSIS WITH LE SYMPTOMS Post-procedure diagnosis: same Procedure Notes Procedure: 1. FLUOROSCOPICALLY GUIDED CONTRAST CONTROLLED TRANSFORAMINAL EPIDURAL STEROID INJECTION - Left L5/S1 Indications: Mirela is referred by Dr. Guzman for treatment of Foraminal Stenosis with Left LE Symptoms Physician: Jeremias Aleman Total Fluoroscopy time (seconds): 13 Total sedation minutes: 11 Complications: none Procedure in detail & Post-procedure care: FINDINGS Foraminal Nerve Root Compression secondary to disc disease and facet hypertrophy DESCRIPTION OF PROCEDURE Following review of allergy and review of potential side effects and complications, including, but not necessarily limited to, infection, allergic reaction, local tissue breakdown, stroke, temporary or permanent nerve injury, paralysis, and possible , the patient indicated that the patient understood and agreed to proceed. An informed consent document was signed by the patient, witnessed by a nurse, and placed in the patient's chart. Additionally, other treatment options including medications, modalities, and physical therapy were reviewed with the patient. After review of previous anaesthesic history and IV conscious sedation the patient was deemed safe to proceed with today?s procedure with IV conscious sedation as ASA class II designation. Safety time-out was performed to confirm patient ID, procedure to be performed and site of procedure. IV sedation was accomplished with a combination of 2mg of Versed was administered by the RN after DO order, titrated to patient comfort during the course of the procedure while the patient remained responsive to all verbal commands In the prone position following sterile prep and drape of the lumbar region, the Left L5/S1 posterior neuroforamen was identified fluoroscopically. The skin was anesthetized via a 25-gauge 1.5-inch needle with 1% lidocaine solution. At this point, a 25-gauge 3.5-inch spinal needle was atraumatically introduced and advanced under fluoroscopic guidance through the posterior Left L5/S1 neuroforamen to approximately the anterior aspect of the canal. Depth was confirmed on lateral view. Following negative aspiration, injection of approximately 1.5 cc of Isovue 200 under live fluoroscopy in the AP view confirm ed excellent flow along the nerve root, into the epidural space without vascular or intrathecal uptake observed Radiological data, including multiple fluoroscopic views of the lumbosacral spine, reveal a spinal needle at the Left L5/S1 posterior neuroforamen. Subsequent views show flow of contrast material flowing superiorly and inferiorly along the nerve root confirming epidural flow. Subsequently, a test dose of 1.5 cc of 1% lidocaine solution was administered and patient was observed for two minutes for signs or symptoms of complications, including abdominal pain, shortness of breath, bilateral upper or lower extremity weakness, nausea and vomiting, prior to steroid injection. At this point, a total of 3cc or 20mg of dexamethasone and 6mg of betamethasone was injected without incident. The procedure tolerated the procedure well without signs or symptoms of complications prior to transfer to the recovery area continued monitoring without incident. The patient was then transferred to the recovery area where they were observed for an appropriate time after the injection. The patient reported a VAS score of 7 prior to the procedure and a post-procedure VAS of 0. POST OP INSTRUCTIONS The patient was provided a Pain Log to continue to record their response to the target-specific procedure prior to follow-up visit with their referring phys ician. Additionally, specific post-injection care instructions and a contact number to our office were provided if concerns arise regarding possible complications associated with the procedure are suspected.
[2022-12-29] MEDS: MIDAZOLAM 2 MG/2 ML VIAL IV (13:28)
[2022-12-29] MEDS: BETAMETHASONE 30 MG/5 ML MDV 6 MG INJ (13:34)
[2022-12-29] MEDS: DEXAMETHASONE 10 MG/ML VIAL 20 MG INJ (13:34)
[2022-12-29] MEDS: BUPIVACAINE 0.25% (PF) VIAL 2 ML INJ (13:34)
[2022-12-29] MEDS: IOPAMIDOL 15 ML VIAL 3 ML INJ (13:35)
== END 2022-12-29 14:05 | disposition home or self-care (01) ==
PROVIDERS: PCP Emergency Medicine Emergency Medical Services; Referring Provider Physical Medicine & Rehabilitation; Visit Provider Physical Medicine & Rehabilitation
DX: M48.07 Spinal stenosis, lumbosacral region (principal); M51.17 Intervertebral disc disorders with radiculopathy, lumbosacral region; M47.27 Other spondylosis with radiculopathy, lumbosacral region
CPT/HCPCS: 64483; 99152; J0702; J1100; J2250; J3490

== ENCOUNTER → 2023-10-06 11:23 | Outpatient (CLI) | payer MEDICARE, OTHER, SELFPAY ==
--- NOTE | 2023-10-06 11:27 | DI.RAD.S_ITS ---
PROCEDURE: XR HIP W PEL IF DONE LT 2V INDICATIONS: left hip pain TECHNIQUE: AP pelvis with lateral view(s) of the left hip(s). COMPARISON: [facility], CR, XR HIP W PEL IF DONE RT 2V, 09/13/2023, 10:55. FINDINGS: Bones: No fractures or dislocations. Pelvic ring appears intact. No suspicious bony lesions. Soft tissues: The visualized bowel gas pattern is normal. No suspicious soft tissue calcifications. IMPRESSION: No acute bony abnormality. Dictated by: James Hankins M.D. on 10/06/2023 at 12:59 Approved by: James Hankins M.D. on 10/06/2023 at 13:04
== END ==
LOC: RAD 11:27
PROVIDERS: PCP Emergency Medicine Emergency Medical Services; Referring Provider Physical Medicine & Rehabilitation; Visit Provider Physical Medicine & Rehabilitation
DX: M70.62 Trochanteric bursitis, left hip (principal)
CPT/HCPCS: 73502; 99214

== ENCOUNTER 2023-11-16 13:29 | Outpatient (CLI) | payer MEDICARE, OTHER, SELFPAY ==
[2023-11-16] VITALS (10 sets, daily range): BP systolic 133–184; BP diastolic 65–87; PULSE 60–68; RESP 14–20; TEMP 36.6; O2SAT 97–100
--- NOTE | 2023-11-16 14:00 | DI.RAD.S_ITS ---
PROCEDURE: PAIN SI JOINT INJECTION FAITH INDICATIONS: Bilateral SI joint injection COMPARISON: None. FINDINGS: Fluoroscopic spot filming was performed to verify placement of spinal needles at the SI joints level(s), as labeled on the films. Appropriate location(s) of the needle tip(s) was confirmed by injection of iodinated contrast. IMPRESSION: Fluoroscopic guidance utilized for a bilateral sacroiliac injection. Dictated by: Isai Brooks M.D. on 11/17/2023 at 9:03 Approved by: Isai Brooks M.D. on 11/17/2023 at 9:06
[2023-11-16] MEDS: MIDAZOLAM 2 MG/2 ML VIAL IV (14:39)
[2023-11-16] MEDS: fentaNYL 100 MCG/2 ML INJ 50 MCG IV (14:44)
[2023-11-16] MEDS: BETAMETHASONE 30 MG/5 ML MDV 12 MG INJ (14:47)
[2023-11-16] MEDS: BUPIVACAINE 0.5% (PF) 10 ML VIAL 2 ML INJ (14:47)
[2023-11-16] MEDS: iopamidoL 15 ML VIAL 3 ML INJ (14:47)
--- NOTE | 2023-11-16 14:56 | PM.PROC.IR.1 ---
Date/Time/Diagnoses Date of procedure: 11/16/23 Time of procedure: 14:56 Pre-procedure diagnosis: Sacroiliac joint pain/DJD Post-procedure diagnosis: same Procedure Notes Procedure: Fluoroscopic guided contrast controlled bilateral sacroiliac joint injection Indications: Mirela is referred by Dr. Guzman for treatment of bilateral sacroiliac joint DJD Physician: Jeremias Aleman Total Fluoroscopy time (seconds): 12 Total sedation minutes: 13 Complications: none Procedure in detail & Post-procedure care: Description of procedure Fluoroscopic guided, contrast controlled bilateral sacroiliac joint injection Following review of allergies and review of potential side effects and complications, including, but not necessarily limited to, infection, allergic reaction, local tissue breakdown, temporary as well as permanent nerve injury, paralysis, stroke and possible , the patient indicated that they understood and agreed to proceed. An informed consent was signed by the patient, witnessed by a nurse, and placed in the patient's chart. Additionally, other treatment options including modalities, medications, and physical therapy were reviewed with the patient. After review of previous anaesthesic history and IV conscious sedation the patient was deemed safe to proceed with today?s procedure with IV conscious sedation as ASA class II designation. Safety time-out was performed to confirm patient ID, procedure to be performed and site of procedure. IV sedation was accomplished with a combination of 2mg Versed and 50mcg of Fentanyl were administered by the RN after DO order, titrated to patient comfort during the course of the procedure while the patient remained responsive to all verbal commands In the prone position following sterile prep and drape of the pelvic region, the hyper lucency on in the inferior aspect of the sacroiliac joint was identified fluoroscopically the skin was anesthetized be a 25 gauge 1.5 inch needle with approximately 2cc of 1% lidocaine solution. At this point, a 22 gauge 3 in spinal needle was atraumatically introduced and advanced under fluoroscopic guidance into the inferior aspect of the right sacroiliac joint. Following negative aspiration, approximately 0.3cc of Isovue-300 was injected confirming intra-articular placement without vascular uptake. Radiographic data, including multiple fluoroscopic views of the pelvis, reveals a spinal needle in the sacroiliac joint hyper lucent zone. Subsequent view show flow contrast tear superiorly and inferiorly within the joint capsule without vascular intrathecal uptake. At this point a total of 1cc of 0.5% Marcaine was combined with 1cc of 6mg of betamethasone was injected without incident. Attention was then refocused the left sacroiliac joint where the procedure was replicated. The procedure tolerated the procedure well without signs or symptoms of complications prior to transfer to the recovery area continued monitoring without incident. The patient was then transferred to the recovery area with a bur observed for an appropriate time after the injection. The patient reverted a vas score of 7 prior to the procedure and post-procedure vas of 1. Postop instructions The patient was provided with a pain like to continue to record the patient's response to the target specific procedure prior to the patient's follow-up visit with the referring physician. Additionally, specific post injection care instructions and a contact number to our office were provided if concerns arise regarding the possible complications associated with procedure are suspected.
--- NOTE | 2023-11-17 12:45 | PC.NURSE ---
Post-procedure call: Spoke with patient. She reports pain is pretty much gone. It is so much better. No questions or concerns. She needs a follow up appointment and states she will call the clinic at another time to schedule.
== END 2023-11-16 15:20 | disposition home or self-care (01) ==
PROVIDERS: PCP Emergency Medicine Emergency Medical Services; Referring Provider Physical Medicine & Rehabilitation; Visit Provider Physical Medicine & Rehabilitation
DX: M53.3 Sacrococcygeal disorders, not elsewhere classified (principal); M46.1 Sacroiliitis, not elsewhere classified
CPT/HCPCS: 27096; 77002; 99152; J0702; J2250; J3010

== ENCOUNTER → 2024-06-26 11:54 | Outpatient (CLI) | payer MEDICARE, OTHER, SELFPAY ==
--- NOTE | 2024-06-26 11:56 | DI.RAD.S_ITS ---
PROCEDURE: XR THORACIC SPINE 3V INDICATIONS: Follow-up T8 fracture TECHNIQUE: 3 views of the thoracic spine were acquired. COMPARISON: [facility], MR, MR THORACIC SPINE WO CON, 03/16/2024, 11:30. FINDINGS: Bones: Wedge-shaped T8 and T9 compression fractures remain unchanged from the prior exam. Generalized decreased osseous mineralization noted. Degenerative disc space narrowing anterior osteophytes noted in the mid to lower thoracic spine Soft tissues: No paravertebral stripe thickening. IMPRESSION: Stable T8 and T9 osteopenic compression fractures Approved by: Dre Lindo M.D. on 06/26/2024 at 17:34
== END ==
PROVIDERS: PCP Emergency Medicine Emergency Medical Services; Referring Provider Physical Medicine & Rehabilitation; Visit Provider Physical Medicine & Rehabilitation
DX: S22.060A Wedge compression fracture of T7-T8 vertebra, initial encounter for closed fracture (principal); S22.070A Wedge compression fracture of T9-T10 vertebra, initial encounter for closed fracture; X58.XXXA Exposure to other specified factors, initial encounter
CPT/HCPCS: 72072